=== PATIENT | male | born 1980 | race Caucasian/White ===

== ENCOUNTER 2019-02-18 14:36 | Emergency (ER) | payer OTHER ==
[~2019-02-18] VITALS: Ht 175 cm; Wt 75.0 kg
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
--- NOTE | 2019-02-18 14:58 | NUR ---
FLUIDS INFUSED AT THIS TIME
[2019-02-18 15:01] VITALS: BP 121/69
== END 2019-02-18 15:01 | disposition home or self-care (01) ==
LOC: EDUNIT# 14:36 → ER 14:37
DX: T67.5XXA Heat exhaustion, unspecified, initial encounter (principal)
CPT/HCPCS: 99283

== ENCOUNTER → 2022-07-07 | Outpatient (CLI) | payer OTHER ==
[~2022-07-07] MED LIST: RT-ALBUTEROL SULF 2.5 MG/3 ML PRE-MIX VIAL INH ONE
== END ==
LOC: RT 10:00
PROVIDERS: ATTEND Nurse Practitioner Family
DX: T14.90XA Injury, unspecified, initial encounter (principal)
CPT/HCPCS: 94060; 94726; 94729